=== PATIENT | female | born 1995 | race Caucasian/White ===

== ENCOUNTER 2018-05-13 20:05 | Emergency (ER) | payer MEDICAID ==
[~2018-05-13] VITALS: Ht 149.9 cm; Wt 54.9 kg
[2018-05-13 20:17] VITALS: BP 125/72; Ht 149.9 cm; Wt 54.9 kg
== END 2018-05-13 20:37 | disposition home or self-care (01) ==
LOC: ED 20:05
DX: K52.9 Noninfective gastroenteritis and colitis, unspecified (principal)